=== PATIENT | male | born 1960 ===

== ENCOUNTER 2020-03-21 07:13 | Emergency (ER) | payer SELFPAY ==
[2020-03-21] MEDS ORDERED: Aspirin 81 MG Tab.Chew PO ONE (07:48)
[2020-03-21 07:50] LABS: CARBON DIOXIDE,CO2 25.2 mmol/L (21.0-32.0); POTASSIUM,K 4.1 mmol/L (3.5-5.1)
[2020-03-21] MEDS ORDERED: Labetalol 100 MG/20 ML MDV IVPUSH ONE (07:51)
--- NOTE | 2020-03-21 07:51 | EDM.PDOC ---
ED HPI GENERAL MEDICAL PROBLEM - General Chief Complaint: Chest Pain Stated Complaint: PER PT, POSSIBLE HEART ATTACK Time Seen by Provider: 03/21/20 07:18 Source of Information: Reports: Patient History Limitations: Reports: No Limitations - History of Present Illness INITIAL COMMENTS - FREE TEXT/NARRATIVE: 59-year-old male with history of hypertension presents with chest pain. His chest pain is described as pressure sensation, it has been intermittent over the last 3 days, he has had about 5 episodes, localized to the midsternum, radiates to the left shoulder and left jaw. Pain is rated at 6/10 at its worst but currently pain-free at 0/10. Pain has been increasing in severity and frequency and duration since onset. Today his chest pain woke him up in the morning. Associated with shortness of breath, sweats. Denies nausea, vomiting. He was previously prescribed lisinopril 20 mg but has been out for 2 months. ROS: A 10-point review of systems, other than pertinent positives and negatives as stated per HPI, is otherwise negative PHYSICAL EXAM General: AOx4, GCS = 15, No distress HEENT: dry mucous membrane Neck: supple, no meningismus, no Kernig or Brudzinski Cardiac: S1S2 RRR Respiratory: CTAB, no crackles or rales, no wheezing Abdomen: Soft, nontender, no rebound or guarding, nondistended, no pulsatile mass. Back: nontender Musculoskeletal: NVI distally, no deformity Neuro: No focal deficits, CN 2 - 12 WNL. MEDICAL DECISION MAKING: I reviewed the patients past medical records, lab and radiographic findings. I discussed the case with family members. My differential diagnosis included: ACS, unstable angina, stable angina, NSTEMI. Patient's EKG today is concerning for an STEMI, troponin was elevated, he was given aspirin, heparin bolus and drip. He had no chest pain upon transfer. He did not require nitroglycerin drip. Critical Care: The high probability of sudden, clinically significant deterioration in the patient's condition required the highest level of my preparedness to intervene urgently. The services I provided to this patient were to treat and/or prevent clinically significant deterioration. Services included the following: chart data review, reviewing nursing notes and/or old charts, documentation time, insolvency consultant collaboration regarding findings and treatment options, medication orders and management, direct patient care, vital sign assessments and ordering, interpreting and reviewing diagnostic studies/lab tests. Aggregate critical care time includes only time during which I was engaged in work directly related to the patient's care, as described above, whether at the bedside or elsewhere in the Emergency Department. It did not include time spent performing other reported procedures or the services of residents, students, nurses or physician assistants. Frequent interventions and/or frequent repeat evaluations were required as well as counseling and coordination of care regarding prognosis, treatments, and discussions with patient, staff and consultants. Critical Care (excluding other procedures): 40 minutes chest pain Pain Score (Numeric/FACES): 8 - Related Data Allergies Allergy/AdvReac Type Severity Reaction Status Date / Time No Known Allergies Allergy Verified 03/21/20 07:48 Home Meds: Home Meds lisinopriL [Lisinopril] 20 mg PO DAILY 03/21/20 [History] ED ROS GENERAL - Review of Systems Review Of Systems: See Below (See dictation) ED EXAM, GENERAL - Physical Exam Exam: See Below (See dictation) EKG INTERPRETATION EKG Interpretation Comments: 62 bpm, NSR, normal QRS interval, TW inversion III, AVF, no STEMI. EKG and rhythm strip interpreted by me at 0714 Course - Vital Signs Last Recorded V/S: Last Vital Signs Temp 96.6 F L 03/21/20 07:30 Pulse 61 03/21/20 08:18 Resp 15 03/21/20 08:18 BP 142/78 H 03/21/20 08:18 Pulse Ox 93 L 03/21/20 08:18 - Orders/Labs/Meds Orders: Active Orders 24 hr Category Date Time Status EKG Documentation Completion [RC] STAT Care 03/21/20 07:30 Active Labs: Laboratory Tests 03/21/20 03/21/20 03/21/20 Range/Units 07:20 07:20 07:20 WBC 16.47 H (4.0-11.0) K/uL RBC 5.98 H (4.50-5.90) M/uL Hgb 18.2 H (13.0-17.0) g/dL Hct 52.8 H (38.0-50.0) % MCV 88.3 (80.0-98.0) fL MCH 30.4 (27.0-32.0) pg MCHC 34.5 (31.0-37.0) g/dL RDW Std Deviation 41.0 (28.0-62.0) fl RDW Coeff of Ana 13 (11.0-15.0) % Plt Count 199 (150-400) K/uL MPV 12.40 H (7.40-12.00) fL Neut % (Auto) 66.9 (48.0-80.0) % Lymph % (Auto) 23.5 (16.0-40.0) % [place] % (Auto) 6.5 (0.0-15.0) % Eos % (Auto) 2.9 (0.0-7.0) % Baso % (Auto) 0.2 (0.0-1.5) % Neut # (Auto) 11.0 H (1.4-5.7) K/uL Lymph # (Auto) 3.9 H (0.6-2.4) K/uL [place] # (Auto) 1.1 H (0.0-0.8) K/uL Eos # (Auto) 0.5 (0.0-0.7) K/uL Baso # (Auto) 0.0 (0.0-0.1) K/uL Nucleated RBC % 0.0 /100WBC Nucleated RBCs # 0 K/uL INR 0.96 Sodium 142 (136-148) mmol/L Potassium 4.1 (3.5-5.1) mmol/L Chloride 105 (98-107) mmol/L Carbon Dioxide 25.2 (21.0-32.0) mmol/L BUN 14 (7.0-18.0) mg/dL Creatinine 1.4 H (0.8-1.3) mg/dL Est Cr Clr Drug Dosing 56.32 mL/min Estimated GFR (MDRD) 52.2 ml/min Glucose 174 H (74-106) mg/dL Calcium 8.8 (8.5-10.1) mg/dL Total Bilirubin 0.5 (0.2-1.0) mg/dL AST 37 (15-37) IU/L ALT 59 (14-63) IU/L Alkaline Phosphatase 83 (46-116) U/L Troponin I 0.731 H* (0.000-0.056) ng/mL Total Protein 8.0 (6.4-8.2) g/dL Albumin 4.2 (3.4-5.0) g/dL Globulin 3.8 (2.6-4.0) g/dL Albumin/Globulin Ratio 1.1 (0.9-1.6) Meds: Medications Discontinued Medications Generic Name Dose Route Start Last Admin Trade Name Atif PRN Reason Stop Dose Admin Aspirin 324 mg 03/21/20 07:48 03/21/20 08:04 Aspirin PO 03/21/20 07:49 324 mg ONETIME ONE Administration Aspirin Confirm 03/21/20 08:03 03/21/20 08:10 Aspirin Administered 03/21/20 08:04 Not Given Dose 162 mg .ROUTE .STK-MED ONE Heparin Sodium (Porcine) 4,000 units 03/21/20 08:06 03/21/20 08:15 Heparin Sodium IVPUSH 03/21/20 08:07 4,000 units ONETIME ONE Administration Heparin Sodium/Sodium Chloride 25,000 unit in 500 mls @ 21.337 mls/hr 08:00 03/21/20 08:16 Heparin-1/2ns 25,000 Units/500 IV 12 units/kg/hr TITRATE MIGEL 21.337 mls/hr Administration Protocol 12 UNITS/KG/HR Labetalol HCl 20 mg 03/21/20 07:51 03/21/20 08:07 Normodyne IVPUSH 03/21/20 07:52 10 mg ONETIME ONE Administration Protocol - Re-Assessments/Exams Free Text/Narrative Re-Assessment/Exam: 03/21/20 08:08 Patient requires transfer to outside facility due to need for higher level of care not available at this facility, and the need for insolvency consultant services unavailable at this facility. Any emergency conditions have been stabilized to the ability of the ED prior to the transfer. Case was discussed with transfer center and transfer arranged to outside facility/higher level of care. Discussed with Brenda Chambers, accepted by Dr. Elijah Curiel. Patient given aspirin 324 mg, heparin bolus and drip, labetalol 10 mg IV for hypertension. Patient is currently chest pain-free. Departure - Departure Time of Disposition: 08:09 Disposition: DC/Tfer to [facility] Reason for Transfer *Q: Primary PCI Indicated Clinical Impression: NSTEMI (non-ST elevated myocardial infarction), Hypertension, Acute coronary syndrome Forms: ED Department Discharge Critical Care Note - Critical Care Note Comments: Critical Care: The high probability of sudden, clinically significant deterioration in the patient's condition required the highest level of my preparedness to intervene urgently. The services I provided to this patient were to treat and/or prevent clinically significant deterioration. Services included the following: chart data review, reviewing nursing notes and/or old charts, documentation time, insolvency consultant collaboration regarding findings and treatment options, medication orders and management, direct patient care, vital sign assessments and ordering, interpreting and reviewing diagnostic studies/lab tests. Aggregate critical care time includes only time during which I was engaged in work directly related to the patient's care, as described above, whether at the bedside or elsewhere in the Emergency Department. It did not include time spent performing other reported procedures or the services of residents, students, nurses or physician assistants. Frequent interventions and/or frequent repeat evaluations were required as well as counseling and coordination of care regarding prognosis, treatments, and discussions with patient, staff and consultants. Critical Care (excluding other procedures): 40 minutes Sepsis Event Note - Evaluation Sepsis Screening Result: No Definite Risk - Focused Exam Vital Signs: Vital Signs Temp Pulse Resp BP Pulse Ox 03/21/20 08:18 61 15 142/78 H 93 L 03/21/20 07:30 96.6 F L 80 16 184/111 H 98 Date Exam was Performed: 03/21/20 Time Exam was Performed: 17:25 - My Orders Last 24 Hours: My Active Orders 03/21/20 07:30 EKG Documentation Completion [RC] STAT - Assessment/Plan Last 24 Hours: My Active Orders 03/21/20 07:30 EKG Documentation Completion [RC] STAT
[2020-03-21] MEDS ORDERED: Heparin Sod,Pork In 0.45% Nacl 25,000 UNIT/500 ML IV.SOLN IV SCH (08:00)
[2020-03-21] MEDS ORDERED: Aspirin 81 MG Tab.Chew ONE (08:03)
[2020-03-21] MEDS ORDERED: Heparin Sodium 5,000 Units/ML Vial IVPUSH ONE (08:06)
--- NOTE | 2020-03-21 08:13 | CR ---
Chest: 2 views of the chest were obtained. Comparison: No prior chest imaging. Heart size and mediastinum are normal. Lungs are clear with no acute parenchymal change. Bony structures appear within normal limits for the patient's age. Impression: 1. Nothing acute is seen on 2 view chest x-ray. Diagnostic code #1 This report was dictated in MDT
== END 2020-03-21 08:40 ==
LOC: MW.ED 07:13
DX: I21.4 Non-ST elevation (NSTEMI) myocardial infarction (principal); I24.9 Acute ischemic heart disease, unspecified; I10 Essential (primary) hypertension; Z79.899 Other long term (current) drug therapy
CPT/HCPCS: 36415; 71046; 80053; 84484; 85025; 85610; 93005; 96365; 96375; 99291; A9270; J1644; J3490